=== PATIENT | female | born 1955 | race Caucasian/White ===

== ENCOUNTER 2022-02-18 12:59 | Emergency (ER) | payer MEDICARE, SELFPAY ==
[2022-02-18] VITALS (7 sets, daily range): BP systolic 141–198; BP diastolic 74–112; PULSE 79–95; RESP 16–18; TEMP 36.6; O2SAT 94–97; BMI 20.5
[2022-02-18 15:52] LABS: Basophils # 0.1 10^3/uL (0.0-0.1); Basophils % 0.7 %; Eosinophils % 0.4 %; Hematocrit 44.6 % (37.0-47.0); Hemoglobin 14.5 g/dL (11.5-15.3); Lymphocytes # 1.9 10^3/uL (0.8-4.8); Lymphocytes % 24.9 %; Mean Corpuscular HGB Conc 32.5 g/dL (30.0-36.0); Mean Corpuscular Hemoglobin 30.9 pg (28.0-34.0); Mean Corpuscular Volume 95.1 fl (81-99); Mean Platelet Volume 9.7 fL (7.4-10.4); Monocytes # 0.5 10^3/uL (0.2-0.9); Monocytes % 6.2 %; Neutrophils # 5.11 10^3/uL (1.8-7.7); Neutrophils % 67.5 %; Nucleated Red Blood Cells % 0 %; Platelet Count 295 10^3/cmm (130-400); Red Blood Count 4.69 10^6/uL (4.1-5.3); Red Cell Distribution Width 12.7 % (12.1-15.1); White Blood Count 7.6 10^3/uL (4.0-10.0)
[2022-02-18 16:14] LABS: Alanine Aminotransferase 17 U/L (0-33); Albumin Level 4.8 g/dL (3.5-5.2); Alkaline Phosphatase 90 U/L (35-105); Anion Gap 15.9 (5-19); Aspartate Amino Transferase 24 U/L (0-32); Blood Urea Nitrogen 14 mg/dL (8-23); Calcium 10.5 mg/dL (8.5-10.5); Carbon Dioxide 26 mmol/L (22-29); Chloride 101 mmol/L (98-107); Globulin 3.3 g/dL (1.3-4.6); Glomerular Filtration Rate 100.3 mL/min (90-130); Glucose 98 mg/dL (65-115); Osmolality Calculated 288 mOsm/kg (285-295); Potassium 3.9 mmol/L (3.5-5.1); Sodium 139 mmol/L (136-145); Total Bilirubin 0.3 mg/dL (0.15-1.2); Total Protein 8.1 g/dL (6.6-8.7)
[2022-02-18 16:24] LABS: Urine Appearance Hazy (CLEAR); Urine Color Red (Yellow); pH Urine 6.5 (5-7)
[2022-02-18 16:25] LABS: Add Urine Microscopic? YES; Bacteria Urine 1+ /hpf; Bilirubin Urine Neg (Negative); Blood Urine 3+ (Negative); Glucose Urine UA Norm (Normal); Ketones Urine Negative (Negative); Leukocyte Esterase Urine 2+ (Negative); Nitrate Urine Negative (Negative); Protein Urine 1+ (Negative); RBC Urine TOO NUMEROUS TO CNT /hpf (0-2); Specific Gravity, Urine 1.015 (1.005-1.030); Squamous Epithelial Cell Urine 0-4 /hpf (0-5); Urobilinogen Urine Norm (Negative); WBC Urine 15-25 /hpf (0-5)
[2022-02-18 16:26] LABS: Add Urine Culture? Yes
--- NOTE | 2022-02-18 16:35 | ED_ITS ---
Documented by User: Jimmie Barbour DO 02/18/22 16:39 HPI - General Adult General: Chief complaint: Urogenital-Female Stated complaint: Blood in urine Time Seen by Provider: 02/18/22 16:31 History of Present Illness: 66-year-old female presents with blood in her urine that started yesterday along with some left flank pain and pain in her left side that is gotten worse throughout the day today. Patient denies any fever or chills. She does have some mild dysuria with the blood. Patient does have a history of kidney stones in the past and reports she was hospitalized for 10 days because of it. No reports of fevers chills nausea or vomiting. Associated symptoms: Deny chest pain, dyspnea, headache(s), nausea, rash, palpitations or vomiting Review of Systems Const: Denies: fever(s), chills or body aches Eyes: Denies: change in vision or blurry vision Card: Denies: chest pain or palpitations Resp: Denies: dyspnea or productive cough GI: Reports: abdominal pain (Left lower/lateral); Denies: nausea or vomiting : Reports: flank pain and hematuria; Denies: difficulty voiding Musc: Reports: back pain; Denies: neck pain Skin/Breast: Denies: rash or pruritus Neuro: Denies: headache(s) or dizziness Physical Exam Const: COMMON NORMALS: no acute distress, patient oriented x3 and alert HENMT: COMMON NORMALS: hearing grossly normal bilaterally and moist oral mucous membranes Resp: COMMON NORMALS: normal respiratory effort, No use of accessory muscles and clear to auscultation bilaterally AUSCULTATION: clear to auscultation bilaterally Cardio: COMMON NORMALS: regular rate and regular rhythm RATE: regular rate RHYTHM: regular rhythm GI: COMMON NORMALS: Soft to palpation and non-tender PALPATION: Yes Soft to palpation : BLADDER/KIDNEY EXAM: Yes CVA tenderness on the left Back/Pelvis: GENERAL BACK: Yes CVA tenderness Extremity: COMMON NORMALS: normal to inspection, full ROM and capillary refill normal Neuro: COMMON NORMALS: patient oriented x3, moves all extremities and no focal motor deficits SENSORIUM/ORIENTATION: Yes alert Psych: COMMON NORMALS: mental status grossly normal, Normal thought process present, cooperative and speech normal SPEECH: Yes normal speech THOUGHT PROCESS: Normal thought process present Skin: COMMON NORMALS: no rashes or lesions noted GENERAL SKIN EXAM: no rashes or lesions noted Course Vital Signs: Vital signs: Vital Signs Temperature 98 F 02/18/22 14:32 Pulse Rate 87 02/18/22 19:35 Respiratory Rate 18 02/18/22 19:35 Blood Pressure 189/106 02/18/22 19:35 Pulse Oximetry 96 02/18/22 19:35 Oxygen Delivery Me thod 02/18/22 16:40 MDM - General Adult Lab Data : 02/18/22 15:31 02/18/22 15:31 Radiology Impressions Abdomen/Pelvis CT 02/18/22 16:39 IMPRESSION: 1. 4.5 cm staghorn calculus in the lower pole of the right kidney. There is mild right perinephric and proximal right periureteral inflammatory stranding. 2. There are ill-defined low densities in the left kidney which cannot be further characterized without IV contrast. CT scan abdomen/pelvis with IV contrast and delayed images, renal protocol, is recommended for further evaluation. 3. Infrarenal abdominal aorta is aneurysmal measuring 3.0 cm by 2.8 cm in AP/transverse dimensions. No evidence for rupture. COMMENTS: Consistent with the [employer]'s Incidental Findings Committee white paper (J Am Oralia Radiol 2018): Any incidental renal lesion less than 1 cm or classified as too small to characterize, or any incidental cystic renal lesion characterized as simple-appearing, is likely benign. No follow-up imaging is recommended for these lesions per consensus recommendations based on imaging criteria. Chest/Abdomen/Pelvis CT 02/18/22 17:27 IMPRESSION: Multivessel atherosclerotic disease which involves the coronary arteries. IMPRESSION: 1. There is a 4.5 cm staghorn calculus in the lower pole the right kidney with mild associated right perinephric and proximal right periureteral inflammatory stranding similar to the prior CT scan. There is right renal scarring. 2. There are cysts with benign features in the left kidney. No striated enhancement is seen to suggest pyelonephritis. 3. 3.0 cm infrarenal abdominal aortic aneurysm without evidence for rupture. COMMENTS: Consistent with the [employer]'s Incidental Findings Committee white paper (J Am Oralia Radiol 2018): Any incidental renal lesion less than 1 cm or classified as too small to characterize, or any incidental cystic renal lesion characterized as simple-appearing, is likely benign. No follow-up imaging is recommended for these lesions per consensus recommendations based on imaging criteria. Laboratory Results WBC 7.6 10^3/uL (4.0-10.0) 02/18/22 15: RBC 4.69 10^6/uL (4.1-5.3) 02/18/22 15: Hgb 14.5 g/dL (11.5-15.3) 02/18/22 15: Hct 44.6 % (37.0-47.0) 02/18/22 15: MCV 95.1 fl (81-99) 02/18/22 15: MCH 30.9 pg (28.0-34.0) 02/18/22 15: MCHC 32.5 g/dL (30.0-36.0) 02/18/22 15: RDW 12.7 % (12.1-15.1) 02/18/22 15: Plt Count 295 10^3/cmm (130-400) 02/18/22 15: MPV 9.7 fL (7.4-10.4) 02/18/22 15: Neut % (Auto) 67.5 % 02/18/22 15: Lymph % (Auto) 24.9 % 02/18/22 15: Snyder % (Auto) 6.2 % 02/18/22 15: Eos % (Auto) 0.4 % 02/18/22: Baso % (Auto) 0.7 % 02/18/22: Neut # (Auto) 5.11 10^3/uL (1.8-7.7) 02/18/22 15: Lymph # (Auto) 1.9 10^3/uL (0.8-4.8) 02/18/22: Snyder # (Auto) 0.5 10^3/uL (0.2-0.9) 02/18/22 15: Eos # (Auto) 0.0 10^3/uL (0.0-0.8) 02/18/22 15: Baso # (Auto) 0.1 10^3/uL (0.0-0.1) 02/18/22 15:31 Nucleated RBC % (auto) 0 % 02/18/22 15: Nucleated RBCs # 0.0 /100WBC 02/18/22 15:31 Sodium 139 mmol/L (136-145) 02/18/22 15:31 Potassium 3.9 mmol/L (3.5-5.1) 02/18/22 15: Chloride 101 mmol/L (98-107) 02/18/22 15: Carbon Dioxide 26 mmol/L (22-29) 02/18/22 15:31 Anion Gap 15.9 (5-19) 02/18/22 15:31 BUN 14 mg/dL (8-23) 02/18/22 15: Creatinine 0.6 mg/dL (0.5-0.9) 02/18/22 15:31 GFR Calculation 100.3 mL/min (90-130) 02/18/22 15: Glucose 98 mg/dL (65-115) 02/18/22 15:31 Calculated Osmolality 288 mOsm/kg (285-295) 02/18/22 15: Calcium 10.5 mg/dL (8.5-10.5) 02/18/22 15:31 Total Bilirubin 0.3 mg/dL (0.15-1.2) 02/18/22 15:31 AST 24 U/L (0-32) 02/18/22 15:31 ALT 17 U/L (0-33) 02/18/22 15:31 Alkaline Phosphatase 90 U/L (35-105) 02/18/22 15:31 Total Protein 8.1 g/dL (6.6-8.7) 02/18/22 15:31 Albumin 4.8 g/dL (3.5-5.2) 02/18/22 15: Globulin 3.3 g/dL (1.3-4.6) 02/18/22 15:31 Urine Color Red (Yellow) 02/18/22 16:10 Urine Appearance Hazy (CLEAR) A 02/18/22 16:10 Urine pH 6.5 (5-7) 02/18/22 16:10 Ur Specific [place] 1.015 (1.005-1.030) 02/18/22 16:10 Urine Protein 1+ (Negative) H 02/18/22 16:10 Urine Glucose (UA) Norm (Normal) 02/18/22 16:10 Urine Ketones Negative (Negative) 02/18/22 16:10 Urine Blood 3+ (Negative) H 02/18/22 16:10 Urine Nitrate Negative (Negative) 02/18/22 16:10 Urine Bilirubin Neg (Negative) 02/18/22 16:10 Urine Urobilinogen Norm mg/dL (Negative) 02/18/22 16:10 Ur Leukocyte Esterase 2+ (Negative) H 02/18/22 16:10 Urine RBC Too numerous to cnt /hpf (0-2) H 02/18/22 16:10 Urine WBC 15-25 /hpf (0-5) H 02/18/22 16:10 Ur Squamous Epith Cells 0-4 /hpf (0-5) H 02/18/22 16:10 Amorphous Sediment Not Reportable 02/18/22 16:10 Urine Bacteria 1+ /hpf (NONE) H 02/18/22 16:10 Discharge Plan Discharge Patient Disposition: Home Clinical Impression: Urinary tract infection Condition: Stable Prescriptions: New cefdinir 300 mg capsule 300 mg PO BID Qty: 14 0RF ondansetron 4 mg film 4 mg PO DAILY PRN (Reason: nausea and vomiting) Qty: 10 0RF hydrocodone-acetaminophen 5-325 mg tablet 1 tab PO Q8H PRN (Reason: pain) Qty: 7 0RF No Action multivitamin Tablet 1 tab PO DAILY Sleep Aid (diphenhydramine) 25 mg Capsule 25 mg PO BEDTIME PRN (Reason: Sleep) omeprazole 20 mg Capsule,Delayed Release(Dr/Ec) 20 mg PO DAILY Fish Oil 1,200 (144-216) mg Capsule 1 cap PO DAILY melatonin 10 mg Tablet 10 mg PO BEDTIME Discharge Orders: Discharge ED (Routine); Ordered 02/18/22 Ordered By: Jamal Wilkins Patient Instructions: Urinary Tract Infection in Women (ED), Opioid Safety, Pain Management Activity Restrictions/Additional Instructions: Return for fever greater than 100 despite 2-3 doses of antibiotics, vomiting liquids or medications, worsening pain despite treatment, any other concerning symptoms. Coding Level of Care Code ED Secretary Bookkeeper for Chg Fwd Exam Comprehensive Documented by User: Jamal Wilkins DO 02/18/22 20:14 HPI - General Adult General: Chief complaint: Urogenital-Female Stated complaint: Blood in urine Time Seen by Provider: 02/18/22 16:31 Course Vital Signs: Vital signs: Vital Signs Temperature 98 F 02/18/22 14:32 Pulse Rate 87 02/18/22 19:35 Respiratory Rate 18 02/18/22 19:35 Blood Pressure 189/106 02/18/22 19:35 Pulse Oximetry 96 02/18/22 19:35 Oxygen Delivery Me thod 02/18/22 16:40 MDM - General Adult Medical Decision Making Patient checked out to me at shift change by the previous physician. She has left flank pain. Normal CBC and BMP. Liver enzymes are nonelevated. She has 15-25 whites, hematuria, and 2+ leukocyte esterase in her urine. Noncontrast CT reveals a right-sided 4.5 cm staghorn calculus without obstruction. The left kidney shows cysts, but no striated enhancement to suggest pyelonephritis. She likely does have subclinical pyelonephritis with a urinary tract infection given her left-sided pain. She will be treated for this. Rocephin here, followed by antibiotics pain medication and antiemetic at home Lab Data : 02/18/22 15:31 02/18/22 15:31 Radiology Impressions Abdomen/Pelvis CT 02/18/22 16:39 IMPRESSION: 1. 4.5 cm staghorn calculus in the lower pole of the right kidney. There is mild right perinephric and proximal right periureteral inflammatory stranding. 2. There are ill-defined low densities in the left kidney which cannot be further characterized without IV contrast. CT scan abdomen/pelvis with IV contrast and delayed images, renal protocol, is recommended for further evaluation. 3. Infrarenal abdominal aorta is aneurysmal measuring 3.0 cm by 2.8 cm in AP/transverse dimensions. No evidence for rupture. COMMENTS: Consistent with the [employer]'s Incidental Findings Committee white paper (J Am Oralia Radiol 2018): Any incidental renal lesion less than 1 cm or classified as too small to characterize, or any incidental cystic renal lesion characterized as simple-appearing, is likely benign. No follow-up imaging is recommended for these lesions per consensus recommendations based on imaging criteria. Chest/Abdomen/Pelvis CT 02/18/22 17:27 IMPRESSION: Multivessel atherosclerotic disease which involves the coronary arteries. IMPRESSION: 1. There is a 4.5 cm staghorn calculus in the lower pole the right kidney with mild associated right perinephric and proximal right periureteral inflammatory stranding similar to the prior CT scan. There is right renal scarring. 2. There are cysts with benign features in the left kidney. No striated enhancement is seen to suggest pyelonephritis. 3. 3.0 cm infrarenal abdominal aortic aneurysm without evidence for rupture. COMMENTS: Consistent with the [employer] [employer]'s Incidental Findings Committee white paper (J Am Oralia Radiol 2018): Any incidental renal lesion less than 1 cm or classified as too small to characterize, or any incidental cystic renal lesion characterized as simple-appearing, is likely benign. No follow-up imaging is recommended for these lesions per consensus recommendations based on imaging criteria. Laboratory Results WBC 7.6 10^3/uL (4.0-10.0) 02/18/22 15:31 RBC 4.69 10^6/uL (4.1-5.3) 02/18/22 15:31 Hgb 14.5 g/dL (11.5-15.3) 02/18/22 15:31 Hct 44.6 % (37.0-47.0) 02/18/22 15:31 MCV 95.1 fl (81-99) 02/18/22 15:31 MCH 30.9 pg (28.0-34.0) 02/18/22 15:31 MCHC 32.5 g/dL (30.0-36.0) 02/18/22 15:31 RDW 12.7 % (12.1-15.1) 02/18/22 15:31 Plt Count 295 10^3/cmm (130-400) 02/18/22 15:31 MPV 9.7 fL (7.4-10.4) 02/18/22 15:31 Neut % (Auto) 67.5 % 02/18/22 15:31 Lymph % (Auto) 24.9 % 02/18/22 15:31 Snyder % (Auto) 6.2 % 02/18/22 15:31 Eos % (Auto) 0.4 % 02/18/22 15:31 Baso % (Auto) 0.7 % 02/18/22 15:31 Neut # (Auto) 5.11 10^3/uL (1.8-7.7) 02/18/22 15:31 Lymph # (Auto) 1.9 10^3/uL (0.8-4.8) 02/18/22 15:31 Snyder # (Auto) 0.5 10^3/uL (0.2-0.9) 02/18/22 15:31 Eos # (Auto) 0.0 10^3/uL (0.0-0.8) 02/18/22 15:31 Baso # (Auto) 0.1 10^3/uL (0.0-0.1) 02/18/22 15:31 Nucleated RBC % (auto) 0 % 02/18/22 15:31 Nucleated RBCs # 0.0 /100WBC 02/18/22 15:31 Sodium 139 mmol/L (136-145) 02/18/22 15:31 Potassium 3.9 mmol/L (3.5-5.1) 02/18/22 15:31 Chloride 101 mmol/L (98-107) 02/18/22 15:31 Carbon Dioxide 26 mmol/L (22-29) 02/18/22 15:31 Anion Gap 15.9 (5-19) 02/18/22 15:31 BUN 14 mg/dL (8-23) 02/18/22 15:31 Creatinine 0.6 mg/dL (0.5-0.9) 02/18/22 15:31 GFR Calculation 100.3 mL/min (90-130) 02/18/22 15:31 Glucose 98 mg/dL (65-115) 02/18/22 15:31 Calculated Osmolality 288 mOsm/kg (285-295) 02/18/22 15:31 Calcium 10.5 mg/dL (8.5-10.5) 02/18/22 15:31 Total Bilirubin 0.3 mg/dL (0.15-1.2) 02/18/22 15:31 AST 24 U/L (0-32) 02/18/22 15:31 ALT 17 U/L (0-33) 02/18/22 15:31 Alkaline Phosphatase 90 U/L (35-105) 02/18/22 15:31 Total Protein 8.1 g/dL (6.6-8.7) 02/18/22 15:31 Albumin 4.8 g/dL (3.5-5.2) 02/18/22 15:31 Globulin 3.3 g/dL (1.3-4.6) 02/18/22 15:31 Urine Color Red (Yellow) 02/18/22 16:10 Urine Appearance Hazy (CLEAR) A 02/18/22 16:10 Urine pH 6.5 (5-7) 02/18/22 16:10 Ur Specific [place] 1.015 (1.005-1.030) 02/18/22 16:10 Urine Protein 1+ (Negative) H 02/18/22 16:10 Urine Glucose (UA) Norm (Normal) 02/18/22 16:10 Urine Ketones Negative (Negative) 02/18/22 16:10 Urine Blood 3+ (Negative) H 02/18/22 16:10 Urine Nitrate Negative (Negative) 02/18/22 16:10 Urine Bilirubin Neg (Negative) 02/18/22 16:10 Urine Urobilinogen Norm mg/dL (Negative) 02/18/22 16:10 Ur Leukocyte Esterase 2+ (Negative) H 02/18/22 16:10 Urine RBC Too numerous to cnt /hpf (0-2) H 02/18/22 16:10 Urine WBC 15-25 /hpf (0-5) H 02/18/22 16:10 Ur Squamous Epith Cells 0-4 /hpf (0-5) H 02/18/22 16:10 Amorphous Sediment Not Reportable 02/18/22 16:10 Urine Bacteria 1+ /hpf (NONE) H 02/18/22 16:10 Discharge Plan Discharge Patient Disposition: Home Clinical Impression: Urinary tract infection Condition: Stable Prescriptions: New cefdinir 300 mg capsule 300 mg PO BID Qty: 14 0RF ondansetron 4 mg film 4 mg PO DAILY PRN (Reason: nausea and vomiting) Qty: 10 0RF hydrocodone-acetaminophen 5-325 mg tablet 1 tab PO Q8H PRN (Reason: pain) Qty: 7 0RF No Action multivitamin Tablet 1 tab PO DAILY Sleep Aid (diphenhydramine) 25 mg Capsule 25 mg PO BEDTIME PRN (Reason: Sleep) omeprazole 20 mg Capsule,Delayed Release(Dr/Ec) 20 mg PO DAILY Fish Oil 1,200 (144-216) mg Capsule 1 cap PO DAILY melatonin 10 mg Tablet 10 mg PO BEDTIME Discharge Orders: Discharge ED (Routine); Ordered 02/18/22 Ordered By: Jamal Wilkins Patient Instructions: Urinary Tract Infection in Women (ED), Opioid Safety, Pain Management Activity Restrictions/Additional Instructions: Return for fever greater than 100 despite 2-3 doses of antibiotics, vomiting liquids or medications, worsening pain despite treatment, any other concerning symptoms. Coding Level of Care Code ED Secretary Bookkeeper for Lexx Fwd Exam Comprehensive
--- NOTE | 2022-02-18 16:39 | CTR_ITS ---
PROCEDURE INFORMATION: Exam: CT Abdomen And Pelvis Without Contrast Exam date and time: 02/18/2022 4:48 PM Age: 66 years old Clinical indication: Abdominal pain; Flank; Left; Additional info: Hematuria, left flank pain TECHNIQUE: Imaging protocol: Computed tomography of the abdomen and pelvis without contrast. Radiation optimization: All CT scans at this facility use at least one of these dose optimization techniques: automated exposure control; mA and/or kV adjustment per patient size (includes targeted exams where dose is matched to clinical indication); or iterative reconstruction. COMPARISON: No relevant prior studies available. RADIATION DOSE METRICS: Total DLP (mGy-cm): 338.49 FINDINGS: Liver: Normal. No mass. Gallbladder and bile ducts: Normal. No calcified stones. No ductal dilation. Pancreas: Normal. No ductal dilation. Spleen: Normal. No splenomegaly. Adrenal glands: Normal. No mass. Kidneys and ureters: There are cysts with benign features in the right kidney the larger of which measures 2.6 cm. There is a septated cyst at the medial aspect of the right kidney measuring 18 mm. Follow-up is not necessary for these lesions. There are multiple small nonobstructing right renal calculi. A staghorn calculus in the lower pole calices of the right kidney extends into the right renal pelvis and measures 4.5 cm in the transverse oblique dimension. There is mild right perinephric and proximal right periureteral inflammatory stranding. There is right renal scarring. There are ill-defined low densities in the left kidney which cannot be further characterized without IV contrast. Stomach and bowel: Unremarkable. No obstruction. No mucosal thickening. Appendix: A normal appendix is identified. Intraperitoneal space: Unremarkable. No free air. No significant fluid collection. Vasculature: Multi-vessel atherosclerotic disease. Infrarenal abdominal aorta is aneurysmal measuring 3.0 cm by 2.8 cm in AP/transverse dimensions. No evidence for rupture. Lymph nodes: Unremarkable. No enlarged lymph nodes. Urinary bladder: Unremarkable as visualized. Reproductive: Unremarkable as visualized. Bones/joints: Unremarkable. No acute fracture. Soft tissues: Unremarkable. CT/CT kidney stone [id number] IMPRESSION: 1. 4.5 cm staghorn calculus in the lower pole of the right kidney. There is mild right perinephric and proximal right periureteral inflammatory stranding. 2. There are ill-defined low densities in the left kidney which cannot be further characterized without IV contrast. CT scan abdomen/pelvis with IV contrast and delayed images, renal protocol, is recommended for further evaluation. 3. Infrarenal abdominal aorta is aneurysmal measuring 3.0 cm by 2.8 cm in AP/transverse dimensions. No evidence for rupture. COMMENTS: Consistent with the [employer]'s Incidental Findings Committee white paper (J Am Oralia Radiol 2018): Any incidental renal lesion less than 1 cm or classified as too small to characterize, or any incidental cystic renal lesion characterized as simple-appearing, is likely benign. No follow-up imaging is recommended for these lesions per consensus recommendations based on imaging criteria.
--- NOTE | 2022-02-18 17:27 | CTR_ITS ---
PROCEDURE INFORMATION: Exam: CT Chest With Contrast; Diagnostic Exam date and time: 02/18/2022 5:47 PM Age: 66 years old Clinical indication: Abnormal findings; Abnormal radiologic finding of the abdomen; Radiologic exam and body structure: CT abd/pelvis, stone protocol; Other: Abnormal CT renal stone protocol; Additional info: Abnormal non contrast, renal protocol TECHNIQUE: Imaging protocol: Diagnostic computed tomography of the chest with contrast. Radiation optimization: All CT scans at this facility use at least one of these dose optimization techniques: automated exposure control; mA and/or kV adjustment per patient size (includes targeted exams where dose is matched to clinical indication); or iterative reconstruction. Contrast material: OMNI 350; Contrast volume: 100 ml; Contrast route: INTRAVENOUS (IV); COMPARISON: CT kidney stone [id number] 02/18/2022 4:48 PM RADIATION DOSE METRICS: Total DLP (mGy-cm): 855.51 FINDINGS: Lungs: Unremarkable. No consolidation. No masses. Pleural spaces: Unremarkable. No pneumothorax. No pleural effusion. Heart: Multivessel atherosclerotic disease which involves the coronary arteries. Lymph nodes: Unremarkable. No enlarged lymph nodes. Vasculature: Unremarkable. No aortic aneurysm. Bones/joints: Unremarkable. No acute fracture. Soft tissues: Unremarkable. PROCEDURE INFORMATION: Exam: CT Abdomen And Pelvis With Contrast Exam date and time: 02/18/2022 5:47 PM Age: 66 years old Clinical indication: Abnormal findings; Abnormal radiologic finding of the abdomen; Radiologic exam and body structure: CT abd/pelvis, stone protocol; Other: Abnormal CT renal stone protocol; Additional info: Abnormal non contrast, renal protocol TECHNIQUE: Imaging protocol: Computed tomography of the abdomen and pelvis with contrast. Radiation optimization: All CT scans at this facility use at least one of these dose optimization techniques: automated exposure control; mA and/or kV adjustment per patient size (includes targeted exams where dose is matched to clinical indication); or iterative reconstruction. Contrast material: OMNI 350; Contrast volume: 100 ml; Contrast route: INTRAVENOUS (IV); COMPARISON: CT kidney stone [id number] 02/18/2022 4:48 PM RADIATION DOSE METRICS: Total DLP (mGy-cm): 855.51 FINDINGS: Liver: Normal. No mass. Gallbladder and bile ducts: Normal. No calcified stones. No ductal dilation. Pancreas: Normal. No ductal dilation. Spleen: Normal. No splenomegaly. Adrenal glands: Normal. No mass. Kidneys and ureters: 4.5 cm staghorn calculus in the right kidney is unchanged from the prior study. There is mild right perinephric and proximal right periureteral inflammatory stranding. There are cysts with benign features in the right kidney the larger of which measures 2.6 cm. There is an 18 mm cyst with a single fine septation in the right kidney. There is right renal scarring. There is an 8 mm cyst with benign features at the lateral aspect of the left kidney upper pole. A 4 mm with benign features is present at the anterior aspect of the midpole the left kidney. No striated enhancement is seen to suggest pyelonephritis. Stomach and bowel: Moderate stool burden. Appendix: No evidence of appendicitis. Intraperitoneal space: Unremarkable. No free air. No significant fluid collection. Vasculature: Infrarenal abdominal aortic aneurysm measures 3.0 cm in AP dimension. No evidence for rupture. Lymph nodes: Unremarkable. No enlarged lymph nodes. Urinary bladder: Unremarkable as visualized. Reproductive: Unremarkable as visualized. Bones/joints: Unremarkable. No acute fracture. Soft tissues: Unremarkable. CT/CT chest abd pel w con* IMPRESSION: Multivessel atherosclerotic disease which involves the coronary arteries. IMPRESSION: 1. There is a 4.5 cm staghorn calculus in the lower pole the right kidney with mild associated right perinephric and proximal right periureteral inflammatory stranding similar to the prior CT scan. There is right renal scarring. 2. There are cysts with benign features in the left kidney. No striated enhancement is seen to suggest pyelonephritis. 3. 3.0 cm infrarenal abdominal aortic aneurysm without evidence for rupture. COMMENTS: Consistent with the [employer]'s Incidental Findings Committee white paper (J Am Oralia Radiol 2018): Any incidental renal lesion less than 1 cm or classified as too small to characterize, or any incidental cystic renal lesion characterized as simple-appearing, is likely benign. No follow-up imaging is recommended for these lesions per consensus recommendations based on imaging criteria.
[2022-02-18] MEDS: ketorolac 30 mg/mL INJ 10 MG IVP (17:40)
[2022-02-18] MEDS: iohexol 350 mg/mL 100 mL Btl IV (17:52)
[2022-02-18] MEDS: cefTRIAXone 1,000 MG in sodium chloride 0.9% (plus) 50 ML 100 MG IV (19:04)
== END 2022-02-18 19:36 | disposition home or self-care (01) ==
PROVIDERS: Emergency Medicine; Student in an Organized Health Care Education/Training Program; Emergency Provider Emergency Medicine
DX: N39.0 Urinary tract infection, site not specified (principal)
CPT/HCPCS: 71260; 74176; 74177; 80053; 81001; 85025; 87086; 96365; 96375; 99285; J0696; J1885; Q9967

== ENCOUNTER → 2022-03-26 10:32 | Outpatient (BNVA) | payer MEDICARE, SELFPAY | PROVIDERS: Visit Provider Podiatrist Foot & Ankle Surgery | DX: B35.1 Tinea unguium (principal) | CPT/HCPCS: 80076; 99204 ==

== ENCOUNTER 2022-05-08 19:55 | Emergency (ER) | payer MEDICARE, SELFPAY ==
[2022-05-08 20:07] VITALS: BP 178/76; PULSE 92; RESP 19; TEMP 36.4; O2SAT 95; BMI 19.8
[2022-05-08 21:14] LABS: Basophils # 0.1 10^3/uL (0.0-0.1); Basophils % 0.8 %; Eosinophils # 0.1 10^3/uL (0.0-0.8); Eosinophils % 0.9 %; Hematocrit 36.4 % (37.0-47.0); Hemoglobin 12.2 g/dL (11.5-15.3); Lymphocytes # 2.3 10^3/uL (0.8-4.8); Lymphocytes % 29.6 %; Mean Corpuscular HGB Conc 33.5 g/dL (30.0-36.0); Mean Corpuscular Hemoglobin 31.3 pg (28.0-34.0); Mean Corpuscular Volume 93.3 fl (81-99); Mean Platelet Volume 9.9 fL (7.4-10.4); Monocytes # 0.6 10^3/uL (0.2-0.9); Monocytes % 7.4 %; Neutrophils # 4.67 10^3/uL (1.8-7.7); Nucleated Red Blood Cells % 0 %; Platelet Count 264 10^3/cmm (130-400); Red Cell Distribution Width 12.5 % (12.1-15.1); White Blood Count 7.7 10^3/uL (4.0-10.0)
--- NOTE | 2022-05-08 21:33 | ED_ITS ---
Documented by User: Jayda Brennan, CARDIOLOGY NURSE PRACTITIONER-C 05/09/22 03:12 HPI - General Adult General: Chief complaint: General Medical Stated complaint: right abd pain/low back pain Time Seen by Provider: 05/08/22 20:17 History of Present Illness: Eyes anyPatient is in today for right lower abdominal pain and right flank pain. She reports that on 17 April she had a very large kidney stone removed from her actual kidney. She reports that on 03 May she had the stent removed. She reports that she was feeling somewhat better after the stent was removed but today she started having significant lower abdominal pain she is shaky and anxious. Fever but has felt clammy and cold. She denies any vomiting. She reports that she was recently treated for a bacterial infection. She denies any urinary symptoms. Associated symptoms: Reports nausea; Deny chest pain, dyspnea, headache(s), palpitations or vomiting Review of Systems Const: Reports: chills; Denies: fever(s) Card: Denies: chest pain or palpitations Resp: Denies: dyspnea, productive cough or non-productive cough GI: Reports: abdominal pain and nausea; Denies: vomiting, diarrhea or constipation : Reports: flank pain Neuro: Denies: headache(s), numbness in extremities or weakness in extremities Physical Exam Const: COMMON NORMALS: patient oriented x3 and alert OTHER: Patient is in obvious pain does appear like she cannot get comfortable Neck/C-Spine: COMMON NORMALS: no JVD Resp: COMMON NORMALS: normal respiratory effort, No use of accessory muscles and clear to auscultation bilaterally AUSCULTATION: clear to auscultation bilaterally Cardio: COMMON NORMALS: no JVD, regular rate, regular rhythm, S1 normal heart sound present and S2 normal heart sound present RATE: regular rate RHYTHM: regular rhythm HEART SOUNDS: S1 normal heart sound present and S2 normal heart sound present GI: COMMON NORMALS: Soft to palpation INSPECTION: Yes normal to inspection AUSCULTATION: Yes normoactive bowel sounds PALPATION: Yes Soft to palpation and Yes Tenderness to palpation present (GI) Details: RLQ and RUQ OTHER: Significant tenderness to palpation entire right side abdomen with some guarding. : BLADDER/KIDNEY EXAM: Yes CVA tenderness (Right side in the area of recent surgical site) Back/Pelvis: GENERAL BACK: Yes CVA tenderness (Right side in the area of recent surgical site) Neuro: COMMON NORMALS: patient oriented x3 SENSORIUM/ORIENTATION: Yes alert Course ED course: 2219?patient feeling much improved after pain medication 2244?given patient's recent surgical procedure and significant right lower abdominal pain and right-sided flank pain CT abdomen and pelvis is ordered. Blood pressure was elevated in triage. Blood pressure rechecked at 2455 and was 130s over 70s. Another dose of morphine is administered prior to discharge. Vital Signs: Vital signs: Vital Signs Temperature 97.6 F 05/08/22 20:07 Pulse Rate 72 05/09/22 01:02 Respiratory Rate 18 05/09/22 01:02 Blood Pressure 135/74 05/09/22 00:56 Pulse Oximetry 94 05/09/22 01:02 Oxygen Delivery Me thod 05/08/22 20:07 [facility] - General Adult Medical Decision Making Consider renal stone, UTI, pyelonephritis, appendicitis, abdominal pain White blood cell count is normal, urine dip shows leukoesterase negative nitrites, negative blood. CT abdomen and pelvis showed right renal staghorn calculus is largely surgically absent, right renal pelvis shows wall thickening and surrounding fat stranding may be due to focal infection or scarring. Markedly scarred right kidney with cyst and stones. Severe atherosclerosis, enlarged liver, constipation, known AAA, dilated pancreatic duct 6 mm recommend follow-up with GI Labs do not indicate any acute bacterial infection, urine is negative for nitrates and patient has no urinary symptoms, CT does not indicate any acute process. Recommend patient follow-up with GI specialist. Recommend patient continue follow-up with urology (she sees urologist in [facility]). Encourage adequate oral hydration. Return to the ER as needed for new or worsening symptoms Lab Data 05/08/22 20:58 05/08/22 20:58 Radiology Impressions KUB X-Ray 05/08/22 21:33 IMPRESSION: 1. No small bowel obstruction or free air. 2. Chronic findings above. 3. Moderate constipation. Abdomen/Pelvis CT 05/08/22 22:46 IMPRESSION: 1. From 02/18/2022, the right renal staghorn calculus is now largely surgically absent. There is right renal pelvis shows wall thickening and surrounding fat stranding. This may be due to focal infection or scarring. Advise correlation. 2. Lobular and markedly scarred right kidney with cysts and stones. 3. Severe atherosclerosis, large liver, constipation, known AAA, and other chronic findings above. 4. Dilated pancreatic duct to 6 mm, nonspecific. Follow with GI. COMMENTS: Consistent with the [employer] [employer]'s Incidental Findings Committee white paper (J Am Oralia Radiol 2018): Any incidental renal lesion less than 1 cm or classified as too small to characterize, or any incidental cystic renal lesion characterized as simple-appearing, is likely benign. No follow-up imaging is recommended for these lesions per consensus recommendations based on imaging criteria. Laboratory Results WBC 7.7 10^3/uL (4.0-10.0) 05/08/22 20:58 RBC 3.90 10^6/uL (4.1-5.3) L 05/08/22 20:58 Hgb 12.2 g/dL (11.5-15.3) 05/08/22 20:58 Hct 36.4 % (37.0-47.0) L 05/08/22 20:58 MCV 93.3 fl (81-99) 05/08/22 20:58 MCH 31.3 pg (28.0-34.0) 05/08/22 20:58 MCHC 33.5 g/dL (30.0-36.0) 05/08/22 20:58 RDW 12.5 % (12.1-15.1) 05/08/22 20:58 Plt Count 264 10^3/cmm (130-400) 05/08/22 20:58 MPV 9.9 fL (7.4-10.4) 05/08/22 20:58 Neut % (Auto) 61.0 % 05/08/22 20:58 Lymph % (Auto) 29.6 % 05/08/22 20:58 Waller % (Auto) 7.4 % 05/08/22 20:58 Eos % (Auto) 0.9 % 05/08/22 20:58 Baso % (Auto) 0.8 % 05/08/22 20:58 Neut # (Auto) 4.67 10^3/uL (1.8-7.7) 05/08/22 20:58 Lymph # (Auto) 2.3 10^3/uL (0.8-4.8) 05/08/22 20:58 Waller # (Auto) 0.6 10^3/uL (0.2-0.9) 05/08/22 20:58 Eos # (Auto) 0.1 10^3/uL (0.0-0.8) 05/08/22 20:58 Baso # (Auto) 0.1 10^3/uL (0.0-0.1) 05/08/22 20:58 Nucleated RBC % (auto) 0 % 05/08/22 20:58 Nucleated RBCs # 0.0 /100WBC 05/08/22 20:58 Sodium 141 mmol/L (136-145) 05/08/22 20:58 Potassium 4.3 mmol/L (3.5-5.1) 05/08/22 20:58 Chloride 105 mmol/L (98-107) 05/08/22 20:58 Carbon Dioxide 26 mmol/L (22-29) 05/08/22 20:58 Anion Gap 14.3 (5-19) 05/08/22 20:58 BUN 18 mg/dL (8-23) 05/08/22 20:58 Creatinine 0.7 mg/dL (0.5-0.9) 05/08/22 20:58 GFR Calculation 84.0 mL/min (90-130) L 05/08/22 20:58 Glucose 94 mg/dL (65-115) 05/08/22 20:58 Calculated Osmolality 294 mOsm/kg (285-295) 05/08/22 20:58 Calcium 10.1 mg/dL (8.5-10.5) 05/08/22 20:58 Total Bilirubin 0.2 mg/dL (0.15-1.2) 05/08/22 20:58 AST 20 U/L (0-32) 05/08/22 20:58 ALT 10 U/L (0-33) 05/08/22 20:58 Alkaline Phosphatase 85 U/L (35-105) 05/08/22 20:58 Total Protein 7.2 g/dL (6.6-8.7) 05/08/22 20:58 Albumin 4.3 g/dL (3.5-5.2) 05/08/22 20:58 Globulin 2.9 g/dL (1.3-4.6) 05/08/22 20:58 Lipase 47 U/L (13-60) 05/08/22 20:58 Urine Color Yellow (Yellow) 05/08/22 20:58 Urine Appearance Clear (CLEAR) 05/08/22 20:58 Urine pH 7 (5-7) 05/08/22 20:58 Ur Specific [place] 1.015 (1.005-1.030) 05/08/22 20:58 Urine Protein Neg (Negative) 05/08/22 20:58 Urine Glucose (UA) Norm (Normal) 05/08/22 20:58 Urine Ketones Negative (Negative) 05/08/22 20:58 Urine Blood Neg (Negative) 05/08/22 20:58 Urine Nitrate Negative (Negative) 05/08/22 20:58 Urine Bilirubin Neg (Negative) 05/08/22 20:58 Urine Urobilinogen Norm mg/dL (Negative) 05/08/22 20:58 Ur Leukocyte Esterase 1+ (Negative) H 05/08/22 20:58 Urine RBC 0-4 /hpf (0-2) H 05/08/22 20:58 Urine WBC 5-10 /hpf (0-5) H 05/08/22 20:58 Ur Squamous Epith Cells 0-4 /hpf (0-5) H 05/08/22 20:58 Amorphous Sediment Not Reportable 05/08/22 20:58 Urine Bacteria Trace /hpf (NONE) 05/08/22 20:58 Urine Yeast Trace /hpf 05/08/22 20:58 Discharge Plan Discharge Patient Disposition: Home Clinical Impression: Acute right flank pain, Abdominal pain, Right nephrolithiasis, Pancreatic duct dilated Condition: Stable Prescriptions: No Action trazodone 100 mg tablet 100 mg PO DAILY terbinafine HCl 250 mg tablet 250 mg PO DAILY Qty: 30 3RF Rx Instructions: Take one tablet by mouth once daily multivitamin Tablet 1 tab PO DAILY Sleep Aid (diphenhydramine) 25 mg Capsule 25 mg PO BEDTIME PRN (Reason: Sleep) omeprazole 20 mg Capsule,Delayed Release(Dr/Ec) 20 mg PO DAILY Fish Oil 1,200 (144-216) mg Capsule 1 cap PO DAILY melatonin 10 mg Tablet 10 mg PO BEDTIME cefdinir 300 mg capsule 300 mg PO BID Qty: 14 0RF ondansetron 4 mg film 4 mg PO DAILY PRN (Reason: nausea and vomiting) Qty: 10 0RF hydrocodone-acetaminophen 5-325 mg tablet 1 tab PO Q8H PRN (Reason: pain) Qty: 7 0RF Discharge Orders: Discharge ED (Routine); Ordered 05/09/22 Ordered By: Jayda Brennan Discharge Diet: Usual diet Discharge Activity: Resume usual activity Patient Instructions: Abdominal Pain (ED) Activity Restrictions/Additional Instructions: Make sure that you are staying well-hydrated. Follow-up with primary care provider. Follow-up with urologist at your scheduled follow-up this . I have placed a referral to case management to set you up with GI specialist regarding an incidental finding of a dilated pancreatic duct on your CT scan. Return to the ER as needed for new or worsening symptoms Coding Level of Care Code ED Waste Cotton Cleaner for Chg Fwd Exam Detailed Documented by User: Michael Elizabeth DO 05/10/22 06:21 HPI - General Adult General: Chief complaint: General Medical Stated complaint: right abd pain/low back pain Time Seen by Provider: 05/08/22 20:17 Course Vital Signs: Vital signs: Vital Signs Temperature 97.6 F 05/08/22 20:07 Pulse Rate 72 05/09/22 01:02 Respiratory Rate 18 05/09/22 01:02 Blood Pressure 135/74 05/09/22 00:56 Pulse Oximetry 94 05/09/22 01:02 Oxygen Delivery Me thod 05/08/22 20:07 MDM - General Adult Medical Decision Making Consider renal stone, UTI, pyelonephritis, appendicitis, abdominal pain White blood cell count is normal, urine dip shows leukoesterase negative nitrites, negative blood. CT abdomen and pelvis showed right renal staghorn calculus is largely surgically absent, right renal pelvis shows wall thickening and surrounding fat stranding may be due to focal infection or scarring. Markedly scarred right kidney with cyst and stones. Severe atherosclerosis, enlarged liver, constipation, known AAA, dilated pancreatic duct 6 mm recommend follow-up with GI Labs do not indicate any acute bacterial infection, urine is negative for nitrates and patient has no urinary symptoms, CT does not indicate any acute process. Recommend patient follow-up with GI specialist. Recommend patient continue follow-up with urology (she sees urologist in [facility]). Encourage adequate oral hydration. Return to the ER as needed for new or worsening symptoms Chart reviewed and patient discussed with midlevel. Agree with assessment and plan. Lab Data 05/08/22 20:58 05/08/22 20:58 Radiology Impressions KUB X-Ray 05/08/22 21:33 IMPRESSION: 1. No small bowel obstruction or free air. 2. Chronic findings above. 3. Moderate constipation. Abdomen/Pelvis CT 05/08/22 22:46 IMPRESSION: 1. From 02/18/2022, the right renal staghorn calculus is now largely surgically absent. There is right renal pelvis shows wall thickening and surrounding fat stranding. This may be due to focal infection or scarring. Advise correlation. 2. Lobular and markedly scarred right kidney with cysts and stones. 3. Severe atherosclerosis, large liver, constipation, known AAA, and other chronic findings above. 4. Dilated pancreatic duct to 6 mm, nonspecific. Follow with GI. COMMENTS: Consistent with the [place] [employer]'s Incidental Findings Committee white paper (J Am Oralia Radiol 2018): Any incidental renal lesion less than 1 cm or classified as too small to characterize, or any incidental cystic renal lesion characterized as simple-appearing, is likely benign. No follow-up imaging is recommended for these lesions per consensus recommendations based on imaging criteria. Laboratory Results WBC 7.7 10^3/uL (4.0-10.0) 05/08/22 20:58 RBC 3.90 10^6/uL (4.1-5.3) L 05/08/22 20:58 Hgb 12.2 g/dL (11.5-15.3) 05/08/22 20:58 Hct 36.4 % (37.0-47.0) L 05/08/22 20:58 MCV 93.3 fl (81-99) 05/08/22 20:58 MCH 31.3 pg (28.0-34.0) 05/08/22 20:58 MCHC 33.5 g/dL (30.0-36.0) 05/08/22 20:58 RDW 12.5 % (12.1-15.1) 05/08/22 20:58 Plt Count 264 10^3/cmm (130-400) 05/08/22 20:58 MPV 9.9 fL (7.4-10.4) 05/08/22 20:58 Neut % (Auto) 61.0 % 05/08/22 20:58 Lymph % (Auto) 29.6 % 05/08/22 20:58 Waller % (Auto) 7.4 % 05/08/22 20:58 Eos % (Auto) 0.9 % 05/08/22 20:58 Baso % (Auto) 0.8 % 05/08/22 20:58 Neut # (Auto) 4.67 10^3/uL (1.8-7.7) 05/08/22 20:58 Lymph # (Auto) 2.3 10^3/uL (0.8-4.8) 05/08/22 20:58 Waller # (Auto) 0.6 10^3/uL (0.2-0.9) 05/08/22 20:58 Eos # (Auto) 0.1 10^3/uL (0.0-0.8) 05/08/22 20:58 Baso # (Auto) 0.1 10^3/uL (0.0-0.1) 05/08/22 20:58 Nucleated RBC % (auto) 0 % 05/08/22 20:58 Nucleated RBCs # 0.0 /100WBC 05/08/22 20:58 Sodium 141 mmol/L (136-145) 05/08/22 20:58 Potassium 4.3 mmol/L (3.5-5.1) 05/08/22 20:58 Chloride 105 mmol/L (98-107) 05/08/22 20:58 Carbon Dioxide 26 mmol/L (22-29) 05/08/22 20:58 Anion Gap 14.3 (5-19) 05/08/22 20:58 BUN 18 mg/dL (8-23) 05/08/22 20:58 Creatinine 0.7 mg/dL (0.5-0.9) 05/08/22 20:58 GFR Calculation 84.0 mL/min (90-130) L 05/08/22 20:58 Glucose 94 mg/dL (65-115) 05/08/22 20:58 Calculated Osmolality 294 mOsm/kg (285-295) 05/08/22 20:58 Calcium 10.1 mg/dL (8.5-10.5) 05/08/22 20:58 Total Bilirubin 0.2 mg/dL (0.15-1.2) 05/08/22 20:58 AST 20 U/L (0-32) 05/08/22 20:58 ALT 10 U/L (0-33) 05/08/22 20:58 Alkaline Phosphatase 85 U/L (35-105) 05/08/22 20:58 Total Protein 7.2 g/dL (6.6-8.7) 05/08/22 20:58 Albumin 4.3 g/dL (3.5-5.2) 05/08/22 20:58 Globulin 2.9 g/dL (1.3-4.6) 05/08/22 20:58 Lipase 47 U/L (13-60) 05/08/22 20:58 Urine Color Yellow (Yellow) 05/08/22 20:58 Urine Appearance Clear (CLEAR) 05/08/22 20:58 Urine pH 7 (5-7) 05/08/22 20:58 Ur Specific [place] 1.015 (1.005-1.030) 05/08/22 20:58 Urine Protein Neg (Negative) 05/08/22 20:58 Urine Glucose (UA) Norm (Normal) 05/08/22 20:58 Urine Ketones Negative (Negative) 05/08/22 20:58 Urine Blood Neg (Negative) 05/08/22 20:58 Urine Nitrate Negative (Negative) 05/08/22 20:58 Urine Bilirubin Neg (Negative) 05/08/22 20:58 Urine Urobilinogen Norm mg/dL (Negative) 05/08/22 20:58 Ur Leukocyte Esterase 1+ (Negative) H 05/08/22 20:58 Urine RBC 0-4 /hpf (0-2) H 05/08/22 20:58 Urine WBC 5-10 /hpf (0-5) H 05/08/22 20:58 Ur Squamous Epith Cells 0-4 /hpf (0-5) H 05/08/22 20:58 Amorphous Sediment Not Reportable 05/08/22 20:58 Urine Bacteria Trace /hpf (NONE) 05/08/22 20:58 Urine Yeast Trace /hpf 05/08/22 20:58 Discharge Plan Discharge Patient Disposition: Home Clinical Impression: Acute right flank pain, Abdominal pain, Right nephrolithiasis, Pancreatic duct dilated Condition: Stable Prescriptions: No Action trazodone 100 mg tablet 100 mg PO DAILY terbinafine HCl 250 mg tablet 250 mg PO DAILY Qty: 30 3RF Rx Instructions: Take one tablet by mouth once daily multivitamin Tablet 1 tab PO DAILY Sleep Aid (diphenhydramine) 25 mg Capsule 25 mg PO BEDTIME PRN (Reason: Sleep) omeprazole 20 mg Capsule,Delayed Release(Dr/Ec) 20 mg PO DAILY Fish Oil 1,200 (144-216) mg Capsule 1 cap PO DAILY melatonin 10 mg Tablet 10 mg PO BEDTIME cefdinir 300 mg capsule 300 mg PO BID Qty: 14 0RF ondansetron 4 mg film 4 mg PO DAILY PRN (Reason: nausea and vomiting) Qty: 10 0RF hydrocodone-acetaminophen 5-325 mg tablet 1 tab PO Q8H PRN (Reason: pain) Qty: 7 0RF Discharge Orders: Discharge ED (Routine); Ordered 05/09/22 Ordered By: Jayda Brennan Discharge Diet: Usual diet Discharge Activity: Resume usual activity Patient Instructions: Abdominal Pain (ED) Activity Restrictions/Additional Instructions: Make sure that you are staying well-hydrated. Follow-up with primary care provider. Follow-up with urologist at your scheduled follow-up this . I have placed a referral to case management to set you up with GI specialist regarding an incidental finding of a dilated pancreatic duct on your CT scan. Return to the ER as needed for new or worsening symptoms Coding Level of Care Code ED Waste Cotton Cleaner for Lexx Fwd Exam Detailed
--- NOTE | 2022-05-08 21:33 | XRR_ITS ---
PROCEDURE INFORMATION: Exam: XR Abdomen Exam date and time: 05/08/2022 10:08 PM Age: 66 years old Clinical indication: Abdominal pain; Localized; Right; Prior surgery; Surgery type: Surgery for renal stone; Patient HX: C/O RT side abd pain with nausea. History of RT side renal stone. ; Additional info: Flank and abd pain. TECHNIQUE: Imaging protocol: Radiologic exam of the abdomen. Views: Frontal supine view of the abdomen. 1 View. COMPARISON: CT chest abd pel w con* 02/18/2022 5:47 PM FINDINGS: Gastrointestinal tract: No small bowel dilation or free air identified. The colon is moderately fecal filled. Organs: Right-sided kidney stones seems smaller and much less conspicuous. Question hepatomegaly. Vasculature: Advanced diffuse vascular calcification noted. Known small AAA, similar to the 02/18/2022 CT. Bones/joints: Unremarkable. XR/XR KUB [id number] IMPRESSION: 1. No small bowel obstruction or free air. 2. Chronic findings above. 3. Moderate constipation.
[2022-05-08 21:35] LABS: Alanine Aminotransferase 10 U/L (0-33); Albumin Level 4.3 g/dL (3.5-5.2); Alkaline Phosphatase 85 U/L (35-105); Anion Gap 14.3 (5-19); Aspartate Amino Transferase 20 U/L (0-32); Blood Urea Nitrogen 18 mg/dL (8-23); Calcium 10.1 mg/dL (8.5-10.5); Carbon Dioxide 26 mmol/L (22-29); Chloride 105 mmol/L (98-107); Globulin 2.9 g/dL (1.3-4.6); Glucose 94 mg/dL (65-115); Lipase 47 U/L (13-60); Osmolality Calculated 294 mOsm/kg (285-295); Potassium 4.3 mmol/L (3.5-5.1); Sodium 141 mmol/L (136-145); Total Bilirubin 0.2 mg/dL (0.15-1.2); Total Protein 7.2 g/dL (6.6-8.7)
[2022-05-08 21:41] VITALS: RESP 16
[2022-05-08] MEDS: morphine 4 mg/mL SDV 1 mL IM (21:41)
[2022-05-08] MEDS: ondansetron 4 MG Tablet PO (21:42)
[2022-05-08 22:11] LABS: Specific Gravity, Urine 1.015 (1.005-1.030); Urine Appearance Clear (CLEAR); Urine Color Yellow (Yellow); pH Urine 7 (5-7)
[2022-05-08 22:13] LABS: Add Urine Microscopic? YES; Bilirubin Urine Neg (Negative); Blood Urine Neg (Negative); Glucose Urine UA Norm (Normal); Ketones Urine Negative (Negative); Leukocyte Esterase Urine 1+ (Negative); Nitrate Urine Negative (Negative); Protein Urine Neg (Negative); Urobilinogen Urine Norm (Negative)
[2022-05-08 22:15] LABS: Bacteria Urine TRACE /hpf; RBC Urine 0-4 /hpf (0-2); Squamous Epithelial Cell Urine 0-4 /hpf (0-5)
[2022-05-08 22:18] LABS: Add Urine Culture? Yes
--- NOTE | 2022-05-08 22:46 | CTR_ITS ---
PROCEDURE INFORMATION: Exam: CT Abdomen And Pelvis With Contrast Exam date and time: 05/09/2022 12:10 AM Age: 66 years old Clinical indication: Abdominal pain; Localized; Right; Prior surgery; Surgery type: For renal stone; Patient HX: RT side abd pain with nausea. ; Additional info: Right lank pain and rlq abd pain, HX of large kidney stone surgically removed 04/17/22 and a TECHNIQUE: Imaging protocol: Computed tomography of the abdomen and pelvis with contrast. Radiation optimization: All CT scans at this facility use at least one of these dose optimization techniques: automated exposure control; mA and/or kV adjustment per patient size (includes targeted exams where dose is matched to clinical indication); or iterative reconstruction. Contrast material: OMNI 350; Contrast volume: 100 ml; Contrast route: INTRAVENOUS (IV); COMPARISON: CT chest abd pel w con* 02/18/2022 5:47 PM RADIATION DOSE METRICS: Total DLP (mGy-cm): 318.73 FINDINGS: Lungs: The visualized lung bases are clear. Diaphragm: Minute hiatal hernia. Liver: Liver is quite large. A few minute cystic foci are of doubtful significance. Gallbladder and bile ducts: No calcified gallstones or biliary dilation identified. Pancreas: The pancreatic duct dilates up to about 6 mm. Spleen: The spleen is not enlarged. No suspicious enhancing mass is noted. Adrenal glands: Normal. No mass. Kidneys and ureters: Lobular and markedly scarred right kidney. Multiple right renal cysts measure up to 3.0 cm. Multiple right kidney stones measure up to 6 mm. Minute left renal cysts measure up to about 1 cm. The right renal pelvis staghorn calculus is virtually resolved from the prior. There is fat stranding and right renal pelvis wall thickening, which may be due to chronic scarring. Stomach and bowel: Moderately fecal filled colon. No small bowel obstruction, abscess or free air. No small bowel obstruction, abscess or free air. Appendix: No evidence of appendicitis. Intraperitoneal space: See Stomach and bowel finding. Vasculature: A known AAA measures up to about 3 cm. No rupture. Lymph nodes: No enlarged lymph nodes. Urinary bladder: Unremarkable as visualized. Reproductive: Likely absent uterus. Advise correlation. Bones/joints: Moderate spine DJD. Soft tissues: No acute or suspicious finding noted. CT/CT abdomen pelvis w con* [id number] IMPRESSION: 1. From 02/18/2022, the right renal staghorn calculus is now largely surgically absent. There is right renal pelvis shows wall thickening and surrounding fat stranding. This may be due to focal infection or scarring. Advise correlation. 2. Lobular and markedly scarred right kidney with cysts and stones. 3. Severe atherosclerosis, large liver, constipation, known AAA, and other chronic findings above. 4. Dilated pancreatic duct to 6 mm, nonspecific. Follow with GI. COMMENTS: Consistent with the [employer] [employer]'s Incidental Findings Committee white paper (J Am Oralia Radiol 2018): Any incidental renal lesion less than 1 cm or classified as too small to characterize, or any incidental cystic renal lesion characterized as simple-appearing, is likely benign. No follow-up imaging is recommended for these lesions per consensus recommendations based on imaging criteria.
[2022-05-09] MEDS: iohexol 350 mg/mL 500 mL Btl (per mL) IV (00:11)
[2022-05-09 00:56] VITALS: BP 135/74
[2022-05-09] MEDS: morphine 4 mg/mL SDV 1 mL 2 MG IVP (00:58)
[2022-05-09 01:02] VITALS: PULSE 72; RESP 18; O2SAT 94
--- NOTE | 2022-05-09 09:23 | DCPLANNER ---
Addendum entered by Clotilde Brooks 05/10/22 09:37: unix manager called to confirm that clinic received patients information. unix manager was told that clinic did get patients information. Patients information will be reviewed, clinic will call patient with appointment information. Addendum entered by Clotilde Brooks 05/09/22 13:39: unix manager received the following message from the front office staff at [facility]: We do not treat this, please refer elsewhere! unix manager spoke with patient and explained this, senior case manager asked patient if she would like to be referred to [facility] or [facility] in [place]. Patient stated that she did not want to go to [place], that she would like to be referred to [facility]. unix manager called the [facility] clinic at phone number [phone], senior case manager faxed patients information to the clinic - fax number is [phone]. patients information will be reviewed, clinic will call patient with appointment information. Original Note: unix manager had message to schedule a follow up appointment for patient with general surgery. unix manager sent patients information to the front office staff at general surgery. Patients information will be printed and reviewed. Clinic will call patient with appointment information.
== END 2022-05-09 01:04 | disposition home or self-care (01) ==
PROVIDERS: Emergency Medicine; Emergency Provider Nurse Practitioner Family
DX: N20.0 Calculus of kidney (principal); K86.89 Other specified diseases of pancreas
CPT/HCPCS: 36415; 74018; 74177; 80053; 81001; 83690; 85025; 87086; 96372; 96374; 99285; J2270; Q0162; Q9967

== ENCOUNTER 2022-05-11 14:14 | Outpatient (CLI) | payer MEDICARE, SELFPAY ==
--- NOTE | 2022-05-11 14:21 | CT_ITS ---
WS: [id number] CT HEAD NONCONTRAST HISTORY: DYSTONIC TREMOR TECHNIQUE: Contiguous axial imaging performed through the brain in 2.5 mm imaging. Bone and soft tiss ue windows. Sagittal and coronal reformats reviewed. All CT scans at [facility] use at least one of these dose optimization techniques: automated exposure control; mA and/or kV adjustment per pa tient size (includes targeted exams where dose is matched to clinical indication); or iterative recon struction. DLP: 943.14 mGy.cm COMPARISON: None available. No acute intracranial hemorrhage, midline shift or mass effect. No atrophy or prior infarcts or herniation. Ventricles: Normal size with no hydrocephalus. Paranasal sinuses: As visualized are clear. Mastoid air cells: Well pneumatized. Calvarium and scalp: Skull is intact with no soft tissue edema or swelling. Atherosclerotic plaque in the intracranial carotid arteries. CT/CT head wo con* [id number] IMPRESSION: 1. No acute intracranial hemorrhage or edema. 2. Atherosclerotic plaque intracranial carotid arteries. Notified MAYURI Parsons at 05/11/2022 2:39 PM.
== END 2022-05-11 14:15 | disposition home or self-care (01) ==
LOC: RAD 14:16
PROVIDERS: Visit Provider Nurse Practitioner Family
DX: G25.2 Other specified forms of tremor (principal); I65.23 Occlusion and stenosis of bilateral carotid arteries
CPT/HCPCS: 70450

== ENCOUNTER 2022-06-25 11:07 | Outpatient (CLI) | payer MEDICARE, SELFPAY ==
--- NOTE | 2022-06-25 11:33 | XRR_ITS ---
PROCEDURE INFORMATION: Exam: XR Lumbosacral Spine Exam date and time: 06/25/2022 11:34 AM Age: 66 years old Clinical indication: Patient HX: Low back pain that started in January when she was diagnosed with a kidney stone. Stone was removed but the back pain stayed TECHNIQUE: Imaging protocol: Radiologic exam of the lumbosacral spine. Views: 6 or more views. Including flexion and extension views. COMPARISON: CT abdomen pelvis w con* [id number] 05/09/2022 12:10 AM FINDINGS: Bones/joints: Lumbar curvature and alignment is unremarkable in neutral position. Flexion and extension views demonstrates some restricted range of motion without evidence of instability. There are mild degenerative changes throughout the lumbar spine with mild endplate osteophytic lipping. There is mild facet arthrosis lower lumbar spine most pronounced at L5-S1. There are no compression fractures or spondylolisthesis. Pedicles are intact. Soft tissues: There are small calcifications projecting over the right left renal hilum suspicious for renal stones. Abdominal aorta is diffusely calcified and ectatic. XR/XR lumbar spine 6V w f/e [id number] IMPRESSION: Mild degenerative changes throughout the lumbar spine. No acute abnormalities. Probable renal stones.
== END 2022-06-25 11:08 | disposition home or self-care (01) ==
PROVIDERS: PCP Nurse Practitioner Family; Visit Provider Family Medicine
DX: M54.50 Low back pain, unspecified (principal)
CPT/HCPCS: 72114

== ENCOUNTER 2023-07-17 11:36 | Outpatient (CLI) | payer MEDICARE, SELFPAY ==
--- NOTE | 2023-07-17 11:56 | CT_ITS ---
WS: [id number] LDCT LUNG CANCER SCREENING TECHNIQUE: Noncontrast CT of the chest with coronal and sagittal reformatted images. CLINICAL INFORMATION: Nicotine dependence COMPARISON: CT chest abdomen pelvis 02/18/2022 DLP: 45.20 mGy.cm DIvol: Mean CTDIvol: 0.80 (mGy) All CT scans at [facility] use at least one of these dose optimization techniques: automat ed exposure control; mA and/or kV adjustment per patient size (includes targeted exams where dose is matched to clinical indication); or iterative reconstruction. FINDINGS: Few tiny subcentimeter nodules in the RIGHT lung apex. A few tiny nodules RIGHT upper and lower lobes. Aortic calcification. Coronary calcification. No mediastinal or hilar lymphadenopathy. No axillary ly mphadenopathy. Adrenal glands are normal. Mild thoracic curve. Mild thoracic kyphosis. Hypertrophic changes thoracic spine. IMPRESSION: CT/CT lung screening [id number] LUNG-RADS: 2-Benign Appearance or Behavior FOLLOW UP: 12 Month: Continue annual screening with LDCT
--- NOTE | 2023-07-17 12:25 | MM_ITS ---
WS: [id number] VIEWS: MLO and CC views both breasts. 3D digital tomosynthesis is also included in this exam. No previous exams. Findings: There are asymmetric densities identified in the bilateral upper outer quadrants and also of the retr oareolar areas of both breasts. These areas are not particularly suspicious. No architectural distort ion or suspicious calcification noted in either breast. 6-month follow-up bilateral mammogram recomme nded to detect any change. The breasts are heterogeneously dense which might obscure small masses Impression: MM/[place] [id number] BI-RADS: 3-Probably Benign FOLLOW-UP: 6 Month Follow-up This mammogram was also analyzed by the Computer Aided Detection System R2 Imag e Denitrator.
== END 2023-07-17 11:37 | disposition home or self-care (01) ==
LOC: RAD 11:36
PROVIDERS: PCP Nurse Practitioner Family; Visit Provider Nurse Practitioner Family
DX: Z12.31 Encounter for screening mammogram for malignant neoplasm of breast (principal); Z12.2 Encounter for screening for malignant neoplasm of respiratory organs; R92.30 Dense breasts, unspecified; R91.8 Other nonspecific abnormal finding of lung field; F17.200 Nicotine dependence, unspecified, uncomplicated
CPT/HCPCS: 71271; 77063; 77067

== ENCOUNTER 2024-01-20 13:10 | Outpatient (CLI) | payer MEDICARE, SELFPAY ==
--- NOTE | 2024-01-20 13:16 | MM_ITS ---
WS: [id number] VIEWS: MLO, CC, and ML views both breasts. 3D digital tomosynthesis is also included in this exam. Comparison made with prior exam of 07/17/2023. Findings: The breasts are heterogeneously dense, which may obscure small masses. There are stable appearing scattered fibroglandular densities in both breasts. No suspicious mass, tu mor calcification or architectural distortion. MM/MM diag BI tomosynthesis [id number] Impression: BI-RADS: 3 - Probably Benign FOLLOW-UP: 1 Year Follow-up This mammogram was also analyzed by the Computer Aided Detection System R2 Imag e Cane Flume Feeding Machine Operator.
== END 2024-01-20 13:11 | disposition home or self-care (01) ==
LOC: RAD 13:10
PROVIDERS: PCP Nurse Practitioner Family; Visit Provider Nurse Practitioner Family
DX: R92.8 Other abnormal and inconclusive findings on diagnostic imaging of breast (principal); R92.333 Mammographic heterogeneous density, bilateral breasts; R92.323 Mammographic fibroglandular density, bilateral breasts
CPT/HCPCS: 77062; G0279

== ENCOUNTER 2024-06-02 17:17 | Emergency (ER) | payer MEDICARE, SELFPAY ==
[2024-06-02 17:20] VITALS: BP 190/99; PULSE 110; TEMP 37.1; O2SAT 97
--- NOTE | 2024-06-02 17:39 | W.ED.URI ---
HPI - URI/Sore Throat General: Chief Complaint: Upper Respiratory Infection Stated Complaint: migraine/chills Time Seen by Provider: 06/02/24 17:33 Source: patient Mode of arrival: ambulatory Limitations: no limitations History of Present Illness: Patient is a 68-year-old female reporting no pertinent past medical history reporting to the emergency department for upper respiratory symptoms beginning this morning. She is stating that she is having bodyaches and chills, has a headache with some eye irritation, an episode of diarrhea, as well as a cough. States that her sister has identical symptoms. She denies any personal history of asthma or COPD. She is not reporting any chest pain. States that she has not taken any medications for her symptoms. She does arrive elevated blood pressure and slightly tachycardic, no fever and breathing normal on room air, 97%. MD elicited complaint: cough Onset (ago): day(s) (Beginning today) Consistency: constant Severity: mild Able to tolerate fluids by mouth: Yes Exacerbating factors: nothing Relieving factors: nothing Context: sick contacts (Sister has same symptoms) Associated symptoms: Reports chills, diarrhea and headache(s); Deny abdominal pain, chest pain, ear or mastoid pain, fever(s), nausea or vomiting Treatments prior to arrival: none Related Data Home Medications ?Medication ?Instructions ?Recorded ?Confirmed diphenhydramine HCl 25 mg capsule 25 mg PO BEDTIME PRN Sleep 02/18/22 03/26/22 (Sleep Aid (diphenhydramine)) melatonin 10 mg tablet 10 mg PO BEDTIME 02/18/22 03/26/22 multivitamin 1 tab PO DAILY 02/18/22 03/26/22 omega 6-jov-izu-fish oil 1,200 mg 1 cap PO DAILY 02/18/22 03/26/22 (144 mg-216 mg) capsule (Fish Oil) omeprazole 20 mg capsule,delayed 20 mg PO DAILY 02/18/22 03/26/22 release trazodone 100 mg tablet 100 mg PO DAILY 03/26/22 03/26/22 Previous Rx's ?Medication ?Instructions ?Recorded cefdinir 300 mg capsule 300 mg PO BID #14 caps 02/18/22 hydrocodone 5 mg-acetaminophen 325 1 tab PO Q8H PRN pain #7 tabs 02/18/22 mg tablet ondansetron 4 mg oral soluble film 4 mg PO DAILY PRN nausea and 02/18/22 vomiting #10 ea terbinafine HCl 250 mg tablet 250 mg PO DAILY #30 tabs 03/26/22 Allergies Allergy/AdvReac Type Severity Reaction Status Date / Time No Known Allergies Allergy Verified 03/26/22 10:05 Review of Systems General: Reports: 10 or more systems reviewed and unremarkable except in HPI and below Const: Reports: chills and body aches; Denies: fever(s) or fatigue Eyes: Reports: eye discomfort; Denies: change in vision ENMT: Denies: throat pain, ear or mastoid pain or nasal discharge Card: Denies: chest pain, palpitations, swelling of feet/ankles or lightheadedness Resp: Reports: non-productive cough; Denies: dyspnea, productive cough or wheezing GI: Reports: diarrhea; Denies: abdominal pain, nausea, vomiting or constipation : Denies: flank pain, difficulty voiding, dysuria or urinary frequency Musc: Denies: neck pain, back pain or joint pain Skin/Breast: Denies: rash Neuro: Reports: headache(s); Denies: numbness in extremities or weakness in extremities Physical Exam Const: COMMON NORMALS: no acute distress, average body habitus, patient oriented x3, no limitations, healthy appearing, alert and well nourished HENMT: COMMON NORMALS: normocephalic, atraumatic, moist oral mucous membranes and oropharynx normal HEAD & SCALP: normocephalic and atraumatic Eye: COMMON NORMALS: Equal, round and reactive pupils present, EOMs intact bilaterally and conjunctivae normal CONJUNCTIVA: Yes conjunctivae normal PUPIL: Yes Equal, round and reactive pupils present Neck/C-Spine: COMMON NORMALS: full ROM and no meningeal signs Resp: COMMON NORMALS: normal respiratory effort, No retractions, No use of accessory muscles and clear to auscultation bilaterally AUSCULTATION: clear to auscultation bilaterally Cardio: COMMON NORMALS: regular rate and regular rhythm RATE: regular rate RHYTHM: regular rhythm HEART SOUNDS: Murmur heart sound present systolic Location: right sternal border Intensity: II/ GI: COMMON NORMALS: Normal to inspection, nondistended, normoactive bowel sounds present, Soft to palpation and non-tender PALPATION: Yes Soft to palpation Back/Pelvis: COMMON NORMALS: thoraco-lumbar ROM normal Extremity: COMMON NORMALS: normal to inspection, full ROM, capillary refill normal, no clubbing, cyanosis or edema and no pedal edema Neuro: COMMON NORMALS: patient oriented x3, moves all extremities, no focal motor deficits and no sensory deficits noted SENSORIUM/ORIENTATION: Yes alert MENINGEAL SIGNS: Yes no meningeal signs Skin: COMMON NORMALS: no rashes or lesions noted GENERAL SKIN EXAM: no rashes or lesions noted Course Vital Signs: Vital signs: Vital Signs Temperature 98.8 F 06/02/24 17:20 Pulse Rate 110 H 06/02/24 17:20 Blood Pressure 190/99 06/02/24 17:20 Pulse Oximetry 97 06/02/24 17:20 Oxygen Delivery Me thod Room Air 06/02/24 17:20 MDM - URI/Sore Throat Medical Decision Making Patient diagnosed with COVID here, physical exam ultimately was unremarkable. Main complaint was back pain, treated with Tylenol and Motrin here. This likely explain her elevated blood pressure, some dehydration potentially causing slight elevation in the heart rate. Explained to her importance of contact precautions as well as conservative therapies for COVID. Told her to follow-up with primary care tomorrow for general reevaluation and to return with any new or worsening. She verbalized understanding with this and agrees with discharge plan at this time. Lab Data Laboratory Results Coronavirus (PCR) Positive (Negative) A 06/02/24 17:26 Influenza A (PCR) Negative (Negative) 06/02/24 17:26 Influenza Type B (PCR) Negative (Negative) 06/02/24 17:26 RSV (PCR) Negative (Negative) 06/02/24 17:26 No radiology studies performed this visit Discharge Plan Discharge Patient Disposition: Home Clinical Impression: COVID-19 Condition: Stable Prescriptions: No Action trazodone 100 mg tablet 100 mg PO DAILY terbinafine HCl 250 mg tablet 250 mg PO DAILY Qty: 30 3RF Rx Instructions: Take one tablet by mouth once daily multivitamin Tablet 1 tab PO DAILY Sleep Aid (diphenhydramine) 25 mg Capsule 25 mg PO BEDTIME PRN (Reason: Sleep) omeprazole 20 mg Capsule,Delayed Release(Dr/Ec) 20 mg PO DAILY Fish Oil 1,200 (144-216) mg Capsule 1 cap PO DAILY melatonin 10 mg Tablet 10 mg PO BEDTIME cefdinir 300 mg capsule 300 mg PO BID Qty: 14 0RF ondansetron 4 mg film 4 mg PO DAILY PRN (Reason: nausea and vomiting) Qty: 10 0RF hydrocodone-acetaminophen 5-325 mg tablet 1 tab PO Q8H PRN (Reason: pain) Qty: 7 0RF Discharge Orders: Discharge ED (Routine); Ordered 06/02/24 Ordered By: Brendon Cedeño Referrals: Julieta Garcia FNP [Primary Care Provider] - Patient Instructions: COVID-19 (Coronavirus Disease 2019) (ED) Activity Restrictions/Additional Instructions: Alternate 800 mg of Motrin and 1 g of Tylenol every 3 hours as we discussed. Please drink plenty of fluids. Contact precaution as you have been diagnosed with COVID-19. Please follow-up with primary care tomorrow and return with any worsening breathing or other concerns. 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
[2024-06-02] MEDS: acetaminophen 500 mg Tablet 1000 MG PO (18:15)
[2024-06-02 18:51] LABS: Influenza A NEGATIVE (Negative); Influenza B NEGATIVE (Negative); Respiratory Syncytial Virus Ce NEGATIVE (Negative)
[2024-06-02 18:57] LABS: Covid PCR Positive (Negative)
[2024-06-02] MEDS: ibuprofen 800 mg tablet PO (19:08)
[2024-06-02 19:40] VITALS: BP 143/82; PULSE 96; O2SAT 94
== END 2024-06-02 19:35 | disposition home or self-care (01) ==
PROVIDERS: Emergency Provider Physician Assistant; PCP Nurse Practitioner Family
DX: U07.1 COVID-19 (principal); Z11.52 Encounter for screening for COVID-19
CPT/HCPCS: 87637; 99283

== ENCOUNTER 2024-10-09 15:18 | Outpatient (CLI) | payer MEDICARE, SELFPAY ==
--- NOTE | 2024-10-09 15:33 | XRR_ITS ---
PROCEDURE INFORMATION: Exam: XR Chest Exam date and time: 10/09/2024 3:39 PM Age: 69 years old Clinical indication: Cough TECHNIQUE: Imaging protocol: Radiologic exam of the chest. Views: 2 views. COMPARISON: CT lung screening [id number] 07/17/2023 12:02 PM FINDINGS: Lungs: Mild coarse infiltrate in the lingula/left lower lobe. 8 mm nodule in the left mid lung. This was not seen on a CT scan from June 2023. Consider a repeat CT. Pleural spaces: Unremarkable. No pleural effusion. No pneumothorax. Heart/Mediastinum: Unremarkable. No cardiomegaly. Bones/joints: Unremarkable. XR/XR chest 2V* [id number] IMPRESSION: 1. Coarse lingular infiltrate. 2. Small left mid lung nodule. Consider chest CT.
== END 2024-10-09 15:19 | disposition home or self-care (01) ==
PROVIDERS: PCP Family Medicine; Visit Provider Family Medicine
DX: R91.1 Solitary pulmonary nodule (principal); R05.8 Other specified cough
CPT/HCPCS: 71046

== ENCOUNTER 2024-10-19 14:37 | Outpatient (CLI) | payer MEDICARE, SELFPAY ==
--- NOTE | 2024-10-19 14:43 | CT_ITS ---
WS: [id number] LDCT LUNG CANCER SCREENING HISTORY: NICOTINE DEPENDENCE,CIGARETTES TECHNIQUE: Axial imaging performed from the apices to 1 cm below the costophrenic angles. Coronal and sagittal reformats are submitted with axial MIP series. All CT scans at [facility] use at least one of these dose optimization techniques: automated exposure control; mA and/or kV adjustment per patient size (includes targeted exams where dose is matched to clinical indication); or iterative reconstruction. DLP: 40.40 mGy.cm DIvol: Mean CTDIvol: 0.70 (mGy) COMPARISON: 07/17/2023 Diagnostic quality: Satisfactory Lungs: Few scattered micronodules. No mass or nodule or enlarging nodule. No pneumonia. No endobronchial lesions. Heart: Normal size heart with no pericardial effusion.. Extensive coronary artery calcifications. Other findings: Moderate atherosclerotic plaque within the thoracic aorta. No aneurysmal dilatation. Normal size pulmonary artery. No pathologically enlarged lymph nodes identified. Asymmetric breast tissue is similar to the prior studies. No hiatal hernia. No adrenal mass. Degenerative disc disease in the midthoracic spine. Mild hypertrophic endplate osteophytes from the vertebral bodies. CT/CT lung screening [id number] IMPRESSION: LUNG-RADS: 2-Benign Appearance or Behavior FOLLOW UP: 12 Month: Continue annual screening with LDCT OTHER FINDINGS (S MODIFIER): None.
== END 2024-10-19 14:38 | disposition home or self-care (01) ==
LOC: RAD 14:38
PROVIDERS: PCP Family Medicine; Visit Provider Family Medicine
DX: Z12.2 Encounter for screening for malignant neoplasm of respiratory organs (principal); F17.210 Nicotine dependence, cigarettes, uncomplicated; R91.8 Other nonspecific abnormal finding of lung field; I25.10 Atherosclerotic heart disease of native coronary artery without angina pectoris; I70.0 Atherosclerosis of aorta; N64.89 Other specified disorders of breast; M51.34 Other intervertebral disc degeneration, thoracic region; M25.78 Osteophyte, vertebrae
CPT/HCPCS: 71271